=== PATIENT | female | born 1965 | race Two or more races ===

== ENCOUNTER → 2024-10-21 | Outpatient (CLI) | payer MEDICAID, SELFPAY ==
--- NOTE | 2024-10-21 11:30 | XR_ITS ---
Examination: Abdomen sonogram, complete Date and time of exam: June 21, 2024 1218 hours INDICATIONS: Left upper abdominal pain beginning one month ago. Technique: Multiple real-time grayscale transabdominal sonographic images of the abdomen have been obtained. Findings: Solid appearing mass extending from the gallbladder wall into the lumen of the gallbladder 3.3 x 2.4 x 2.7 cm No gallbladder wall edema Common bile duct 0.2 cm Pancreatic head 1.7 cm Aorta not enlarged Liver 14.2 cm fatty infiltration Normal hepatopedal portal venous flow Patent IVC Right kidney 11.2 cm cortex 1.6 cm Left kidney 9.1 cm renal cortex 1.1 cm Spleen 9.5 cm IMPRESSION: Recommend CT scan abdomen pelvis post contrast follow-up to assess masslike area involving the gallbladder 3.3 x 2.4 x 2.7 cm
== END | disposition home or self-care (01) ==
LOC: CDIM 11:58
PROVIDERS: PCP Physician Assistant; Referring Provider Surgery; Visit Provider Surgery
DX: K82.8 Other specified diseases of gallbladder (principal)
CPT/HCPCS: 76700